=== PATIENT | male | born 1960 | race Caucasian/White ===

== ENCOUNTER → 2019-03-03 | Day surgery (SDC) | payer OTHER ==
[~2019-03-03] MED LIST: AMLO10TA4 PO; ASPI-630 PO; ATOR10TA PO; AZEL137S3 NS; CETI10TA30 PO; FISH1CAP PO; FLUT9.9S NS; HYDROmorphone 2 MG/ML VIAL IV PRN; IV RINGERS,LACTATED 1000ML 1,000 ML IV SCH; LIDOCAINE 2% PF 5 ML VIAL. ONE; MONT10TA49 PO; MORPHINE SULFATE 2 MG/ML VIAL. IV PRN; ONDANSETRON PF 4 MG/2 ML VIAL. IV PRN; PROCHLORPERAZINE 10 MG/2 ML VIAL. IV PRN; PROPOFOL 20 ML IV ONE; TAMS0.4C97 PO; VENTOLIN HFA18 GM INH; fentaNYL PF VIAL 100 MCG/2 ML VIAL IV PRN
[2019-03-03 09:25] VITALS: BP 159/95
--- NOTE | 2019-03-03 14:17 | HP ---
ADMIT DATE: 03/03/2019 UPDATED HISTORY AND PHYSICAL REFERRING PHYSICIAN: ____. REASON: Colorectal screening. HISTORY OF PRESENT ILLNESS: A 58-year-old male whose past medical history is significant for hypertension, hyperlipidemia and asthma, seen for screening colon exam. Last exam was done over a decade ago, which revealed hemorrhoids. Bowel habits have been regular without diarrhea or constipation. There has been no change in weight or appetite and frequent bleeding with hemorrhoids is noted. He is otherwise without additional complaints. PAST MEDICAL HISTORY: Asthma, hemorrhoids, hypertension and hyperlipidemia. ALLERGIES: None. MEDICATIONS: Include Ventolin, amlodipine, aspirin, atorvastatin, azelastine, cetirizine, fish oil, Flonase, montelukast and tamsulosin. FAMILY AND SOCIAL HISTORY: Significant for hypertension. He is a nonsmoker, social drinker. PAST SURGICAL HISTORY: Significant for appendectomy. REVIEW OF SYSTEMS: Per records. PHYSICAL EXAMINATION: GENERAL: Reveals a well-nourished, well-developed male. VITAL SIGNS: Temperature is 98.3, pulse 52 and respiratory rate is 18. HEENT: Normocephalic, atraumatic head. Pupils and extraocular muscles are not tested. Sclerae anicteric. NECK: Supple. LUNGS: Clear. CARDIOVASCULAR: Reveals an S1, S2 without S3, S4 or appreciable murmur. ABDOMEN: Reveals a soft abdomen. Normoactive bowel sounds without appreciable hepatosplenomegaly. EXTREMITIES: Reveals no cyanosis, clubbing or edema. IMPRESSION: Colorectal screening is recommended at this time. Risks and benefits of procedure including risk of hemorrhage and perforation during the operation were discussed. The patient is willing to proceed. IONA SALMERON MD DR: LEONID/[place] JOB#: [id number] / [id number]
== END ==
LOC: ENDOS 06:50
PROVIDERS: ATTEND Internal Medicine Gastroenterology
DX: Z12.11 Encounter for screening for malignant neoplasm of colon (principal); K63.89 Other specified diseases of intestine; K64.0 First degree hemorrhoids; I10 Essential (primary) hypertension; E78.5 Hyperlipidemia, unspecified; J45.909 Unspecified asthma, uncomplicated
CPT/HCPCS: 45378; J2001; J2704